=== PATIENT | male | born 1950 | race Caucasian/White ===

== ENCOUNTER 2021-07-15 14:23 | Outpatient (REF) | payer MEDICARE, BC, SELFPAY ==
[2021-07-17 13:56] LABS: COVID-19 RT-PCR UVMMC Result Negative (Negative)
== END 2021-07-15 14:24 | disposition home or self-care (01) ==
LOC: LBN 14:23
PROVIDERS: Visit Provider Physician Assistant
DX: Z20.822 Contact with and (suspected) exposure to COVID-19 (principal)
CPT/HCPCS: U0003

== ENCOUNTER 2021-07-15 14:58 | Outpatient (CLI) | payer MEDICARE, BC, SELFPAY ==
--- NOTE | 2021-07-15 14:15 | DI.RAD_ITS ---
Exam(s) XR CHEST 2V PA LATERAL EXAM: XR CHEST 2V PA LATERAL CLINICAL HISTORY: cough, r/o pneumonia,pui. TECHNIQUE: 2D digital imaging was performed. COMPARISON: None FINDINGS: There is sternotomy wires. Heart size is minimally prominent. There is a prosthetic aortic valve an d there is also a clip-type device probably related to the appendage. There is no widening of the me diastinum. Left hemidiaphragm is elevated. No confluent infiltrates nor pleural effusions. No pulmonary edema. There is subsegmental platelike atelectasis in the lateral right lung base. There is no pneumothor ax. IMPRESSION: Cardiac findings as above. No pulmonary edema or pleural effusions. Elevated left hemidiaphragm. DATA REPOSITORY: RADIATION DOSE DELIVERED:
== END 2021-07-15 15:18 ==
PROVIDERS: Visit Provider Physician Assistant
DX: R05 Cough (principal)
CPT/HCPCS: 71046